=== PATIENT | female | born 1955 | race Hispanic/Latino ===

== ENCOUNTER 2017-12-26 08:06 | Inpatient (IN) | payer MEDICARE, OTHER ==
[2017-12-26 08:09] VITALS: BMI 107.6
--- NOTE | 2017-12-26 08:18 | C.PDOC ---
History Of Present Illness 62 y/o F c PMHx schizphrenia BIBEMS with altered mental status. Patient was found on floor by family member this morning at 6:30am (2 hours ago). According to EMS who knows patient well, she is normally verbal and walking at baseline. This morning, she was minimally responsive and not spontaneously moving. She was leaning over a table according to family member at 6:30pm last night, which was the last time she was seen normal. While changing patient into hospital gown , she is speaking nonsensically and moving all extremities. Full HPI/ROS unobtainable due to mental status. Time Seen by Provider: 12/26/17 08:07 Past Medical History Vital Signs: Last Vital Signs Temp 98.8 F 12/26/17 08:34 Pulse 95 H 12/26/17 10:41 Resp 15 12/26/17 10:41 BP 140/68 12/26/17 10:41 Pulse Ox 99 12/26/17 10:41 - Medical History PMH: Diabetes, Paranoia, Schizophrenia Denies: Hepatitis, HIV, HTN, Chronic Kidney Disease, Seizures, Sexually Transmitted Disease - [facility] Procedures PSYCHIAT DRUG THERAP NEC (04/13/03) Family History: States: Unknown Family Hx - Social History Hx Tobacco Use: No Hx Alcohol Use: No Hx Substance Use: No - Immunization History Hx Tetanus Toxoid Vaccination: No Hx Influenza Vaccination: No Hx Pneumococcal Vaccination: No Review Of Systems Review Of Systems: ROS cannot be obtained secondary to pt's inabilty to answer questions. Physical Exam - Physical Exam Additional Physical Exam Comments: Gen: No acute distress Head: AT Eyes: PERRL ENT: MMM Neck: No midline tenderness. FROM Chest: No deformity CV: Radial pulses 2+. Regular rate Lungs: CTA b/l Abd: Soft, NT Back: No midline tenderness Extremities: Pelvis stable. FROM x 4. No tenderness or edema x 4 Skin: No ecchymosis or laceration Neuro: Awake, speaking nonsensically, moves all extremities ED Course And Treatment - Laboratory Results Result Diagrams: 12/26/17 08:43 12/26/17 08:43 Medical Decision Making Medical Decision Makin62 y/o F c PMHx schizophrenia p/w altered mental status without focal neurological deficit and no physical exam evidence of trauma. Differential at this time includes still trauma, medication side effect, CVA, metabolic abnormality, infection. CT Head IMPRESSION: No acute intracranial hemorrhage. PE Mild chronic periventricular white matter ischemic changes. Moderate generalized volume loss. CXR IMPRESSION: No active pulmonary disease. UA shows UTI and chemistry reveals dehydration and acute renal insufficiency. Will treat with antibiotics and IVF. Disposition Discussed With DrRomero: Chely Faulkner Doctor Will See Patient In The: Hospital - Disposition Disposition: HOSPITALIZED Disposition Time: 10:05 Condition: GUARDED - Clinical Impression Clinical Impression: Acute renal insufficiency, Dehydration, UTI (urinary tract infection), Altered mental status
[2017-12-26 08:54] LABS: BASO % 0.1 % (0.0-2.0); HEMOGLOBIN 12.1 g/dL (11.0-16.0); LYMPH # 0.9 K/uL (1.0-4.3); LYMPH % 6.4 % (20.0-40.0); MEAN CELL VOLUME 69.9 fL (81.0-99.0); MEAN CORPUSCULAR HGB CONC 32.8 g/dL (33.0-37.0); MEAN PLATELET VOLUME 9.9 fL (7.2-11.7); MONO # 1.2 K/uL (0.0-0.8); MONO % 8.3 % (0.0-10.0); NEUT # 12.4 K/uL (1.8-7.0); NEUT % 85.2 % (50.0-75.0); PLATELET COUNT 301 K/uL (130-400); RBC 5.27 Mil/uL (3.80-5.20); RED CELL DISTRIBUTION WIDTH 15.6 % (11.5-14.5); WHITE BLOOD COUNT 14.5 K/uL (4.8-10.8)
[2017-12-26 08:58] LABS: INR 1.2; PROTHROMBIN TIME 12.7 SECONDS (9.7-12.2)
--- NOTE | 2017-12-26 09:12 | CT ---
PROCEDURE: CT HEAD WITHOUT CONTRAST. HISTORY: Altered mental status COMPARISON: None available. TECHNIQUE: Axial computed tomography images were obtained through the head/brain without intravenous contrast. Radiation dose: Total exam DLP = 903.28 mGy-cm. This CT exam was performed using one or more of the following dose reduction techniques: Automated exposure control, adjustment of the mA and/or kV according to patient size, and/or use of iterative reconstruction technique. FINDINGS: HEMORRHAGE: No acute parenchymal, subarachnoid nor extra-axial hemorrhage. BRAIN: Minor chronic periventricular white matter ischemic changes seen extending peripherally into the deep white matter of both cerebral hemispheres. No evidence of large acute infarct. No obvious parenchymal nor extra-axial mass or collection seen on this noncontrast study. Moderate generalized volume loss. VENTRICLES: No obstructive hydrocephalus. CALVARIUM: There are no acute calvarial fractures. . PARANASAL SINUSES: Unremarkable as visualized. No significant inflammatory changes. MASTOID AIR CELLS: Unremarkable as visualized. No inflammatory changes. OTHER FINDINGS: None. IMPRESSION: No acute intracranial hemorrhage. PE Mild chronic periventricular white matter ischemic changes. Moderate generalized volume loss.
[2017-12-26 09:30] LABS: ACETAMINOPHEN < 10.0 ug/mL (10.0-30.0); SALICYLATE < 1.0 mg/dL 1
[2017-12-26 09:32] LABS: BANDS 2 % (0-2); BASOPHIL 1 % (0-2); MONOCYTE 8 % (0-10); TOTAL CELLS COUNTED 100
[2017-12-26 09:33] LABS: ANISOCYTOSIS SLIGHT; LYMPHOCYTE 8 % (20-40); NEUTROPHIL 81 % (50-75); PLATELET ESTIMATE NORMAL (NORMAL)
[2017-12-26 09:36] LABS: POIKILOCYTOSIS SLIGHT
[2017-12-26 09:36] LABS: SQUAMOUS EPITHIAL 2 /hpf (0-5); URINE AMORPHOUS SEDIMENT RARE /ul (<OCC); URINE BACTERIA MANY (<OCC); URINE BILIRUBIN NEGATIVE (NEGATIVE); URINE BLOOD 1+ (NEGATIVE); URINE CLARITY Hazy (Clear); URINE COLOR Amber (YELLOW); URINE GLUCOSE (UA) 1+ mg/dL (Normal); URINE LEUKOCYTE ESTERASE NEG Leu/uL (Negative); URINE PROTEIN 2+ mg/dL (NEGATIVE)
[2017-12-26 09:37] LABS: BURR CELLS SLIGHT; HYPOCHROMIC SLIGHT
[2017-12-26] MEDS ORDERED: Cefepime IV 1 gm in Dextrose 1 GM/50 ML BAG IVPB STA (09:39)
[2017-12-26 09:40] LABS: BARBITURATES, UR NEGATIVE (NEGATIVE); BENZODIAZEPINES, UR NEGATIVE (NEGATIVE); OPIATES, UR NEGATIVE (NEGATIVE); PHENCYCLIDINE, UR NEGATIVE (NEGATIVE)
[2017-12-26 09:50] LABS: ALB/GLOB RATIO 1.3 (1.0-2.1); ALBUMIN 4.4 g/dL (3.5-5.0); ALT/SGPT 45 U/L (9-52); AST/SGOT 54 U/L (14-36); BLOOD UREA NITROGEN 30 mg/dL (7-17); CALCIUM 9.7 mg/dl (8.6-10.4); GFR AFRICAN-AMERICAN 42; GFR NON-AFRICAN AMERICAN 35
--- NOTE | 2017-12-26 10:04 | RAD ---
HISTORY: ams COMPARISON: 07/25/2016. FINDINGS: LUNGS: The lungs are well inflated and clear. PLEURA: No significant pleural effusion identified, no pneumothorax apparent. CARDIOVASCULAR: Normal. OSSEOUS STRUCTURES: No significant abnormalities. VISUALIZED UPPER ABDOMEN: Normal. OTHER FINDINGS: None. IMPRESSION: No active pulmonary disease.
[2017-12-26] MEDS ORDERED: Sodium Chloride 0.9% 1,000 ML IV STA (10:11)
[2017-12-26] MEDS ORDERED: Sodium Chloride 0.9% 1,000 ML ONE (10:26)
[2017-12-26] MEDS ORDERED: Sodium Chloride 0.45% 1,000 ML IV SCH (13:45)
--- NOTE | 2017-12-26 22:19 | CP.PCM.HP ---
History of Present Illness - History of Present Illness History of Present Illness: Chief complaints: Brought in by ambulance because of the altered mental status History present illness: 62-year-old female with a history of schizophrenia, hypertension was found on the floor by family member, and called ambulance. When the EMS arrived the patient was minimally responsive, and she was not moving so patient was brought to the emergency room. According to the family members the patient was communicating the night before. Patient was in [facility], as an inpatient recently, but was released, now at home. According to the patient's brother who is main restaurant crew person, patient was getting more and more combative verbalizing. But after discharge from the place patient become more weak, not eating well. And today patient is not verbalizing, and not eating. And she become more lethargic. In the emergency room patient was sometimes able to come communicate, but unable to comprehend the conversation. Patient is so confused. Even in normal time in my office, agent is always talking by herself. She feels like there is at least 2-3 people in herself, and she complicated with each other all the time. But she can able to talk to us at times. Now patient is more lethargic, unable to arouse at this time, but otherwise comfortable Past medical history, schizophrenia, hypertension. Allergy no known drug allergy Personal history nonsmoker nonalcoholic Social history noted Patient is living with family members him a and also the brother is the main restaurant crew person. Review of system: Patient is somewhat lethargic, arousable easily. Communicating. Verbalizing at times. No distress. She is not complaining of any pain. On examination: Vital signs reviewed Chest good air entry, minimal mucosal dryness noted Regular heart sound Abdomen soft Nontender. Next images no pedal edema HEAD DOFFER alert awake oriented Patient's labs reviewed Elevated sodium level, calcium level noted. Suspected dehydration Assessment and recommendation: 62-year-old female with a history of schizophrenia, hypertension admitted to the hospital with the increasing pathology. Metabolic encephalopathy Likely dehydration. Prerenal Also possible urinary tract infection. On antibiotic. IV fluid. Psychotic evaluation. Closely monitor. Will follow the patient Present on Admission - Present on Admission Any Indicators Present on Admission: No History of DVT/PE: No History of Uncontrolled Diabetes: No Urinary Catheter: No Decubitus Ulcer Present: No Past Patient History - Infectious Disease Hx of Infectious Diseases: None - Past Medical History & Family History Past Medical History?: Yes - Past Social History Smoking Status: Never Smoked - CARDIAC Hx Hypertension: Yes - PULMONARY Hx Tuberculosis: No - NEUROLOGICAL Hx Seizures: No - HEENT Hx HEENT Problems: No - RENAL Hx Chronic Kidney Disease: No - ENDOCRINE/METABOLIC Hx Endocrine Disorders: No - HEMATOLOGICAL/ONCOLOGICAL Hx Human Immunodeficiency Virus (HIV): No - INTEGUMENTARY Hx Dermatological Problems: No - MUSCULOSKELETAL/RHEUMATOLOGICAL Hx Falls: Yes - GASTROINTESTINAL Hx Gastrointestinal Disorders: No - GENITOURINARY/GYNECOLOGICAL Hx Sexually Transmitted Disorders: No - PSYCHIATRIC Hx Paranoia: Yes Hx Schizophrenia: Yes Hx Substance Use: No - SURGICAL HISTORY Hx Surgeries: No - ANESTHESIA Hx Anesthesia: No Hx Anesthesia Reactions: No Hx Malignant Hyperthermia: No Has any member of the family had a problem w/ anesthesia?: No Meds Allergies/Adverse Reactions: Allergies Allergy/AdvReac Type Severity Reaction Status Date / Time No Known Allergies Allergy Verified 12/26/17 08:49 Results - Vital Signs Recent Vital Signs: Last Vital Signs Temp 98.6 F 12/26/17 15:34 Pulse 86 12/26/17 18:00 Resp 20 12/26/17 15:34 BP 106/65 12/26/17 15:34 Pulse Ox 97 12/26/17 15:34 - Labs Result Diagrams: 12/27/17 06:39 12/27/17 06:39 Labs: Laboratory Results - last 24 hr 12/26/17 12/26/17 12/26/17 08:10 08:43 08:43 WBC 14.5 H RBC 5.27 H Hgb 12.1 Hct 36.9 MCV 69.9 L MCH 23.0 L MCHC 32.8 L RDW 15.6 H Plt Count 301 MPV 9.9 Neut % (Auto) 85.2 H Lymph % (Auto) 6.4 L Walton % (Auto) 8.3 Eos % (Auto) 0.0 Baso % (Auto) 0.1 Neut # (Auto) 12.4 H Lymph # (Auto) 0.9 L Walton # (Auto) 1.2 H Eos # (Auto) 0.0 Baso # (Auto) 0.0 Neutrophils % (Manual) 81 H Band Neutrophils % 2 Lymphocytes % (Manual) 8 L Monocytes % (Manual) 8 Basophils % (Manual) 1 Platelet Estimate Normal Hypochromasia (manual) Slight Poikilocytosis (manual Slight Anisocytosis (manual) Slight Osiris Cells Slight PT INR APTT Sodium 152 H Potassium 4.1 Chloride 108 H Carbon Dioxide 21 L Anion Gap 26 H BUN 30 H Creatinine 1.5 H Est GFR ( Amer) 42 Est GFR (Non-Af Amer) 35 POC Glucose (mg/dL) 167 H Random Glucose 152 H Calcium 9.7 Total Bilirubin 0.6 AST 54 H ALT 45 Alkaline Phosphatase 73 Ammonia Total Creatine Kinase 224 H CK-MB (Mass) 2.60 Troponin I 0.0880 Total Protein 7.7 Albumin 4.4 Globulin 3.3 Albumin/Globulin Ratio 1.3 Urine Color Urine Clarity Urine pH Ur Specific Decker Urine Protein Urine Glucose (UA) Urine Ketones Urine Blood Urine Nitrate Urine Bilirubin Urine Urobilinogen Ur Leukocyte Esterase Urine WBC (Auto) Urine RBC (Auto) Ur Squamous Epith Cells Amorphous Sediment Urine Bacteria Hyaline Casts Salicylates Urine Opiates Screen Urine Methadone Screen Acetaminophen Ur Barbiturates Screen Ur Phencyclidine Scrn Ur Amphetamines Screen U Benzodiazepines Scrn U Oth Cocaine Metabols U Cannabinoids Screen Alcohol, Quantitative < 10 Blood Type Antibody Screen 12/26/17 12/26/17 12/26/17 08:43 08:43 08:43 WBC RBC Hgb Hct MCV MCH MCHC RDW Plt Count MPV Neut % (Auto) Lymph % (Auto) Walton % (Auto) Eos % (Auto) Baso % (Auto) Neut # (Auto) Lymph # (Auto) Walton # (Auto) Eos # (Auto) Baso # (Auto) Neutrophils % (Manual) Band Neutrophils % Lymphocytes % (Manual) Monocytes % (Manual) Basophils % (Manual) Platelet Estimate Hypochromasia (manual) Poikilocytosis (manual Anisocytosis (manual) Success Cells PT 12.7 H INR 1.2 APTT 36 H Sodium Potassium Chloride Carbon Dioxide Anion Gap BUN Creatinine Est GFR ( Amer) Est GFR (Non-Af Amer) POC Glucose (mg/dL) Random Glucose Calcium Total Bilirubin AST ALT Alkaline Phosphatase Ammonia 17 Total Creatine Kinase CK-MB (Mass) Troponin I Total Protein Albumin Globulin Albumin/Globulin Ratio Urine Color Urine Clarity Urine pH Ur Specific Decker Urine Protein Urine Glucose (UA) Urine Ketones Urine Blood Urine Nitrate Urine Bilirubin Urine Urobilinogen Ur Leukocyte Esterase Urine WBC (Auto) Urine RBC (Auto) Ur Squamous Epith Cells Amorphous Sediment Urine Bacteria Hyaline Casts Salicylates < 1.0 Urine Opiates Screen Urine Methadone Screen Acetaminophen < 10.0 L Ur Barbiturates Screen Ur Phencyclidine Scrn Ur Amphetamines Screen U Benzodiazepines Scrn U Oth Cocaine Metabols U Cannabinoids Screen Alcohol, Quantitative Blood Type Antibody Screen 12/26/17 12/26/17 12/26/17 08:43 09:15 09:15 WBC RBC Hgb Hct MCV MCH MCHC RDW Plt Count MPV Neut % (Auto) Lymph % (Auto) Walton % (Auto) Eos % (Auto) Baso % (Auto) Neut # (Auto) Lymph # (Auto) Walton # (Auto) Eos # (Auto) Baso # (Auto) Neutrophils % (Manual) Band Neutrophils % Lymphocytes % (Manual) Monocytes % (Manual) Basophils % (Manual) Platelet Estimate Hypochromasia (manual) Poikilocytosis (manual Anisocytosis (manual) Osiris Cells PT INR APTT Sodium Potassium Chloride Carbon Dioxide Anion Gap BUN Creatinine Est GFR ( Amer) Est GFR (Non-Af Amer) POC Glucose (mg/dL) Random Glucose Calcium Total Bilirubin AST ALT Alkaline Phosphatase Ammonia Total Creatine Kinase CK-MB (Mass) Troponin I Total Protein Albumin Globulin Albumin/Globulin Ratio Urine Color Carmen Urine Clarity Hazy Urine pH 5.0 Ur Specific Decker 1.023 Urine Protein 2+ H Urine Glucose (UA) 1+ Urine Ketones Trace Urine Blood 1+ H Urine Nitrate Positive H Urine Bilirubin Negative Urine Urobilinogen 2.0 H Ur Leukocyte Esterase Neg Urine WBC (Auto) 6 H Urine RBC (Auto) 11 H Ur Squamous Epith Cells 2 Amorphous Sediment Rare H Urine Bacteria Many H Hyaline Casts 11-20 H Salicylates Urine Opiates Screen Negative Urine Methadone Screen Negative Acetaminophen Ur Barbiturates Screen Negative Ur Phencyclidine Scrn Negative Ur Amphetamines Screen Negative U Benzodiazepines Scrn Negative U Oth Cocaine Metabols Negative U Cannabinoids Screen Negative Alcohol, Quantitative Blood Type O NEGATIVE Antibody Screen Negative
[2017-12-27 06:46] LABS: BASO % 0.2 % (0.0-2.0); EOS % 0.5 % (0.0-4.0); HEMOGLOBIN 10.2 g/dL (11.0-16.0); LYMPH # 3.3 K/uL (1.0-4.3); LYMPH % 35.6 % (20.0-40.0); MEAN CORPUSCULAR HEMOGLOBIN 23.1 pg (27.0-31.0); MEAN CORPUSCULAR HGB CONC 33.5 g/dL (33.0-37.0); MEAN PLATELET VOLUME 9.2 fL (7.2-11.7); MONO # 0.9 K/uL (0.0-0.8); MONO % 9.9 % (0.0-10.0); NEUT % 53.8 % (50.0-75.0); RBC 4.39 Mil/uL (3.80-5.20); RED CELL DISTRIBUTION WIDTH 15.8 % (11.5-14.5); WHITE BLOOD COUNT 9.2 K/uL (4.8-10.8)
[2017-12-27 07:08] LABS: ALB/GLOB RATIO 1.2 (1.0-2.1); ALT/SGPT 46 U/L (9-52); AST/SGOT 72 U/L (14-36); BLOOD UREA NITROGEN 19 mg/dL (7-17); CALCIUM 8.8 mg/dl (8.6-10.4); GFR AFRICAN-AMERICAN > 60; GFR NON-AFRICAN AMERICAN > 60
[2017-12-27] MEDS ORDERED: Sodium Chloride 0.45% 1,000 ML IV SCH (08:00)
[2017-12-27] MEDS: Divalproex 250 mg DR Tab PO SCH ×4 (10:39→18:03)
[2017-12-27] MEDS ORDERED: SODIUM CHLORIDE 0.45% IV SCH (16:45)
[2017-12-27] MEDS ORDERED: POTASSIUM CHLORIDE IV SCH (16:45)
[2017-12-27] MEDS: Potassium Chl 40 mEq in D5-1/2 1,000 ML IV SCH (18:30)
--- NOTE | 2017-12-27 18:53 | CP.PCM.PN ---
Subjective - Date & Time of Evaluation Date of Evaluation: 12/27/17 Time of Evaluation: 18:53 - Subjective Subjective: Patient is still feeling somewhat confused. Patient is not eating well. She is getting the IV fluid at this time. I spoke to the patient's brother in detail about the patient's condition. Patient's brother was her to be in a facility at in [place], for mental condition. Recently she was placed on the [facility] involuntarily, but was released recently. She is not eating well, her condition is slowly worsening On examination: Vital signs stable. Chest good air entry noted. Regular heart sound. Nontender abdomen FORM RAISER alert awake, she is following simple commands. And she is also answering simple questions Labs reviewed Improvement in the renal functions noted Assessment and recommendation: 62-year-old female with a history of long-standing schizophrenia, unable to control with the medications. Now admitted with acute renal failure, dehydration, altered mental status. Metabolic encephalopathy. Improvement noted. Patient will need psychotic follow-up and evaluation. Patient's brother wants her to be transferred if possible to [place]. Will continue the current IV fluid and will treatment out of bed to chair and will follow the patient Objective - Vital Signs/Intake and Output Vital Signs (last 24 hours): Temp Pulse Resp BP Pulse Ox 98.3 F 83 20 107/83 94 L 12/27/17 15:24 12/27/17 15:24 12/27/17 15:24 12/27/17 15:24 12/27/17 15:24 Intake and Output: 12/27/17 12/27/17 06:59 18:59 Intake Total 525 Balance 525 - Medications Medications: Current Medications Amlodipine Besylate (Norvasc) 10 mg PO DAILY [facility] Last Admin: 12/27/17 10:30 Dose: 10 mg Benztropine Mesylate (Cogentin) 1 mg PO BID [facility] Last Admin: 12/27/17 18:01 Dose: 1 mg Divalproex Sodium (Depakote Dr) 250 mg PO TID [facility] Last Admin: 12/27/17 18:03 Dose: 250 mg Haloperidol (Haldol) 10 mg PO TID [facility] Last Admin: 12/27/17 18:02 Dose: 10 mg Ceftriaxone Sodium 1 gm/ (Sodium Chloride) 100 mls @ 200 mls/hr IVPB DAILY [facility] PRN Reason: Protocol Last Admin: 12/27/17 10:29 Dose: 200 mls/hr Potassium Chloride/Dextrose/Sod Cl (Potassium Chl 40 Meq In D5-1/2ns) 1,000 mls @ 50 mls/hr IV .Q20H [facility] Last Admin: 12/27/17 18:30 Dose: 50 mls/hr Lorazepam (Ativan) 0.5 mg PO BID [facility] Last Admin: 12/27/17 18:00 Dose: 0.5 mg Pneumococcal Polyvalent Vaccine (Pneumovax 23 Vaccine) 0.5 ml IM .ONCE ONE Stop: 12/28/17 10:01 - Labs Labs: 12/27/17 06:39 12/27/17 06:39 PT 12.7 SECONDS (9.7-12.2) H 12/26/17 08:43 INR 1.2 12/26/17 08:43 APTT 36 SECONDS (21-34) H 12/26/17 08:43
[2017-12-28 06:56] LABS: BASO % 0.3 % (0.0-2.0); EOS # 0.1 K/uL (0.0-0.7); LYMPH # 3.4 K/uL (1.0-4.3); MONO # 0.8 K/uL (0.0-0.8); MONO % 10.3 % (0.0-10.0); NRBC % 0.1 % (0.0-2.0)
[2017-12-28 07:06] LABS: EOS % 1.7 % (0.0-4.0); HEMOGLOBIN 10.6 g/dL (11.0-16.0); LYMPH % 43.7 % (20.0-40.0); MEAN CORPUSCULAR HGB CONC 33.3 g/dL (33.0-37.0); MEAN PLATELET VOLUME 9.4 fL (7.2-11.7); NEUT # 3.4 K/uL (1.8-7.0); RBC 4.62 Mil/uL (3.80-5.20); RED CELL DISTRIBUTION WIDTH 15.5 % (11.5-14.5); WHITE BLOOD COUNT 7.7 K/uL (4.8-10.8)
[2017-12-28 07:13] LABS: ALB/GLOB RATIO 1.1 (1.0-2.1); ALBUMIN 2.9 g/dL (3.5-5.0); ALT/SGPT 58 U/L (9-52); AST/SGOT 86 U/L (14-36); BLOOD UREA NITROGEN 12 mg/dL (7-17); CALCIUM 8.4 mg/dl (8.6-10.4); GFR AFRICAN-AMERICAN > 60; GFR NON-AFRICAN AMERICAN > 60
--- NOTE | 2017-12-28 07:42 | CP.PCM.PN ---
Subjective - Date & Time of Evaluation Date of Evaluation: 12/28/17 Time of Evaluation: 07:42 - Subjective Subjective: Patient is still feeling somewhat confused. Patient is not eating well. She is getting the IV fluid at this time. I spoke to the patient's brother in detail about the patient's condition. Patient's brother was her to be in a facility at in [place], for mental condition. Recently she was placed on the [facility] involuntarily, but was released recently. She is not eating well, her condition is slowly worsening On examination: Vital signs stable. Chest good air entry noted. Regular heart sound. Nontender abdomen [employer] alert awake, she is following simple commands. And she is also answering simple questions Labs reviewed Improvement in the renal functions noted Assessment and recommendation: 62-year-old female with a history of long-standing schizophrenia, unable to control with the medications. Now admitted with acute renal failure, dehydration, altered mental status. Metabolic encephalopathy. Improvement noted. Patient will need psychotic follow-up and evaluation. Patient's brother wants her to be transferred if possible to [place]. Will continue the current IV fluid and will treatment out of bed to chair and will follow the patient Objective - Vital Signs/Intake and Output Vital Signs (last 24 hours): Temp Pulse Resp BP Pulse Ox 97.3 F L 68 20 116/60 95 12/28/17 00:00 12/28/17 00:00 12/28/17 00:00 12/28/17 00:00 12/28/17 00:00 Intake and Output: 12/28/17 12/28/17 06:59 18:59 Intake Total 1000 Balance 1000 - Medications Medications: Current Medications Amlodipine Besylate (Norvasc) 10 mg PO DAILY [facility] Last Admin: 12/27/17 10:30 Dose: 10 mg Benztropine Mesylate (Cogentin) 1 mg PO BID [facility] Last Admin: 12/27/17 18:01 Dose: 1 mg Divalproex Sodium (Depakote Dr) 250 mg PO TID [facility] Last Admin: 12/27/17 18:03 Dose: 250 mg Haloperidol (Haldol) 10 mg PO TID [facility] Last Admin: 12/27/17 18:02 Dose: 10 mg Ceftriaxone Sodium 1 gm/ (Sodium Chloride) 100 mls @ 200 mls/hr IVPB DAILY [facility] PRN Reason: Protocol Last Admin: 12/27/17 10:29 Dose: 200 mls/hr Potassium Chloride/Dextrose/Sod Cl (Potassium Chl 40 Meq In D5-1/2ns) 1,000 mls @ 50 mls/hr IV .Q20H [facility] Last Admin: 12/27/17 18:30 Dose: 50 mls/hr Lorazepam (Ativan) 0.5 mg PO BID [facility] Last Admin: 12/27/17 18:00 Dose: 0.5 mg Pneumococcal Polyvalent Vaccine (Pneumovax 23 Vaccine) 0.5 ml IM .ONCE ONE Stop: 12/28/17 10:01 - Labs Labs: 12/28/17 06:50 12/28/17 06:50 PT 12.7 SECONDS (9.7-12.2) H 12/26/17 08:43 INR 1.2 12/26/17 08:43 APTT 36 SECONDS (21-34) H 12/26/17 08:43
[2017-12-28] MEDS: Divalproex 250 mg DR Tab PO SCH ×3 (09:38→17:46)
[2017-12-28] MEDS ORDERED: Pneumococcal 23-Valent Vaccine IM ONE (10:00)
[2017-12-28] MEDS: Potassium Chl 40 mEq in D5-1/2 1,000 ML IV SCH (14:22)
--- NOTE | 2017-12-28 17:10 | PCM.PSYCH ---
Initial Psychiatric Evaluation - Initial Psychiatric Evaluation Type of Admission: Voluntary Legal Status: Capacity Chief Complaint (in patient's own words): Maria M estrella.' History of Present Illness and Precipitating Events: This is a 62 y/o CF as medical history of Schizophrenia was BIB EMS with altered mental status. Patient was found on floor by family member. Today patient was consulted. Patient has a long history of schizophrenia. She has been hospitalized multiple times. She will last discharge from [facility] last year. Patient remained disorganized and internally preoccupied throughout the interview. She remained paranoid, and delusional throughout the interview. She was alert and awake but remained disoriented to time, place and person. She was talking to self and was making a full conversation. As per the staff, she remained irritable and agitated and continue to have one-sided conversation whole night. Since she was attacking the staff members and pulling IV lines out , soft gloves were put on her both hands. PMH: HTN Current Medications: Active Medications Generic Name Dose Route Start Last Admin Trade Name Karen PRN Reason Stop Dose Admin Amlodipine Besylate 10 mg 12/27/17 10:12/28/17 09:38 Norvasc PO 10 mg DAILY [facility] Administration Benztropine Mesylate 1 mg 12/27/17 10:00 12/28/17 09:37 Cogentin PO 1 mg BID [facility] Administration Divalproex Sodium 250 mg 12/27/17 10:00 12/28/17 14:[address] PO 250 mg TID [facility] Administration Haloperidol 10 mg 12/27/17 10:00 12/28/17 14:23 Haldol PO 10 mg TID [facility] Administration Ceftriaxone Sodium 1 gm/ 100 mls @ 200 mls/hr 12/27/17 10:00 12/28/17 10:06 Sodium Chloride IVPB 200 mls/hr DAILY [facility] Administration Protocol Potassium Chloride/Dextrose/Sod Cl 1,000 mls @ 50 mls/hr 12/27/17 18:00 12/28 14:22 Potassium Chl 40 Meq In D5-1/2ns IV Not Given .Q20H [facility]IA Lorazepam 0.5 mg 12/27/17 10:00 12/28/17 09:38 Ativan PO 0.5 mg BID [facility] Administration Past Psychiatric History - Past Psychiatric History Previous Treatment History: Inpatient Pertinent Medical Hx (Current Medical&Sleep Prob, Allergies): Allergies Allergy/AdvReac Type Severity Reaction Status Date / Time No Known Allergies Allergy Verified 12/26/17 08:49 Benztropine [Cogentin] 1 mg PO BID 12/26/17 Divalproex [Depakote DR] 250 mg PO TID 12/26/17 Fenofibric Acid (Choline) [Trilipix] 135 mg PO DAILY 12/26/17 Haloperidol [Haldol] 10 mg PO TID 12/26/17 LORazepam [Ativan] 0.5 mg PO BID 12/26/17 amLODIPine [Norvasc] 10 mg PO DAILY 12/26/17 Review of Systems - Review of Systems All systems: reviewed and no additional remarkable complaints except - Psychiatric Psychiatric: Anxiety, Auditory Hallucinations, Irritability, Paranoia Mental Status Examination - Personal Presentation Personal Presentation: Looks stated age - Affect Affect: Broad - Motor Activity Motor Activity: Psychomotor Agitation - Reliability in Providing Information Reliability in Providing Information: Poor, due to alteration in thoughts, Poor , due to altered mood - Speech Speech: Disorganized - Mood Mood: Anxious - Formal Thought Process Formal Thought Process: Hallucinations, Delusions, Paranoia, Loosening of associations - Hallucinations/Delusions Hallucinations: Visual, Auditory Delusions: Persecution - Obsessions/Compulsions Obsessions: No Compulsions: No - Cognitive Functions Sensorium: Alert Attention/Concentration: Easily distracted Estimate of Intelligence: Below average Judgement: Imparied, as evidence by: Poor judgement, Imparied, as evidence by: Lack of insight into illness - Risk Risk: Diminished functioning - Limitations Limitations: Living alone DSM 5 DX - DSM 5 DSM 5 Diagnosis: Schizoaffective disorder bipolar type Rule out delirium due to medical condition - Recommended/Plan of Treatment Treatment Recommendations and Plan of Treatment: Schizoaffective disorder bipolar type Rule out delirium due to medical condition Psychoeducation Supportive therapy, group therapy, individual therapy Haldol 10 mg by mouth TID Cogentin 1 mg by mouth twice a day DC Depakote 500 mg by mouth twice a day Gabapentin 300 mg po TID Klonopin 0.5 mg by mouth 3 times a day when necessary
[2017-12-29] MEDS: Potassium Chl 40 mEq in D5-1/2 1,000 ML IV SCH ×2 (02:10→10:39)
[2017-12-29 06:38] LABS: BASO % 0.4 % (0.0-2.0); EOS # 0.2 K/uL (0.0-0.7); EOS % 2.8 % (0.0-4.0); HEMOGLOBIN 11.1 g/dL (11.0-16.0); LYMPH # 3.2 K/uL (1.0-4.3); LYMPH % 44.6 % (20.0-40.0); MEAN CELL VOLUME 69.8 fL (81.0-99.0); MEAN CORPUSCULAR HEMOGLOBIN 23.1 pg (27.0-31.0); MEAN PLATELET VOLUME 8.9 fL (7.2-11.7); MONO # 0.7 K/uL (0.0-0.8); MONO % 9.1 % (0.0-10.0); NEUT # 3.1 K/uL (1.8-7.0); NEUT % 43.1 % (50.0-75.0); NRBC % 0.1 % (0.0-2.0); RBC 4.79 Mil/uL (3.80-5.20); RED CELL DISTRIBUTION WIDTH 15.7 % (11.5-14.5); WHITE BLOOD COUNT 7.1 K/uL (4.8-10.8)
[2017-12-29 06:56] LABS: ALB/GLOB RATIO 1.2 (1.0-2.1); ALBUMIN 3.2 g/dL (3.5-5.0); ALT/SGPT 54 U/L (9-52); AST/SGOT 55 U/L (14-36); BLOOD UREA NITROGEN 12 mg/dL (7-17); CALCIUM 8.6 mg/dl (8.6-10.4); GFR AFRICAN-AMERICAN > 60; GFR NON-AFRICAN AMERICAN > 60
--- NOTE | 2017-12-29 16:49 | PCM.PYCHPN ---
Psychiatric Progress Note - Psychiatric Progress Note Patient seen today, length of contact: 15 min Patient Chief Complaint: Maria M is great.' Problems Identified/Issues Discussed: Patient seen and evaluated, chart reviewed and discussed with the nurse. Patient remained disorganized and internally preoccupied. Patient still appears paranoid and delusional. She remained delirious and remained disoriented to time place and person. She is still talking to herself and making a nonstop one-sided conversation She remained irritable and agitated. However she is taking medications and denies any side effects. Medication Change: Yes (Increase Klonopin) Medical Record Reviewed: Yes Mental Status Examination - Cognitive Function Memory: Impaired Attention: Poor Concentration: Poor Association: Loose Fund of Knowledge: Poor - Mood Mood: Anxious - Affect Affect: Broad - Speech Speech: Loud, Pressured - Formal Thought Process Formal Thought Process: Hallucinations, Delusions, Paranoia, Loosening of associations - Suicidal Ideation Suicidal Ideation: No - Homicidal Ideation Homicidal Ideation: No Goal/Treatment Plan - Goal/Treatment Plan Need for Continued Stay: Severe depression anxiety, Severe functional impairment Progress Toward Problem(s) and Goals/Treatment Plan: Schizoaffective disorder bipolar type Rule out delirium due to medical condition Psychoeducation Supportive therapy, group therapy, individual therapy Haldol 10 mg by mouth TID Cogentin 1 mg by mouth twice a day DC Depakote 500 mg by mouth twice a day Gabapentin 300 mg po TID Klonopin 1 mg by mouth 3 times a day when necessary
[2017-12-30] MEDS: Potassium Chl 40 mEq in D5-1/2 1,000 ML IV SCH ×2 (02:43→06:32)
--- NOTE | 2017-12-30 22:27 | CP.PCM.PN ---
Subjective - Date & Time of Evaluation Date of Evaluation: 12/29/17 Time of Evaluation: 22:26 - Subjective Subjective: Patient is currently feeling slightly sleepy. Awake and responding when you when we called her by name. She is eating and drinking well. No chest pain or shortness of breath Vital signs stable Clinically otherwise stable. Assessment and recommendation: Patient with urinary tract infection, E. coli. On antibiotic. Admitted with altered mental status. Improving. Patient also has a significant schizophrenia and psychotic condition. Appreciate psychotic evaluation. Objective - Vital Signs/Intake and Output Vital Signs (last 24 hours): Temp Pulse Resp BP Pulse Ox 98.5 F 80 20 125/75 92 L 12/30/17 15:59 12/30/17 15:59 12/30/17 15:59 12/30/17 15:59 12/30/17 15:59 Intake and Output: 12/30/17 12/31/17 18:59 06:59 Intake Total 400 Balance 400 - Medications Medications: Current Medications Amlodipine Besylate (Norvasc) 10 mg PO DAILY [facility] Last Admin: 12/30/17 09:26 Dose: 10 mg Benztropine Mesylate (Cogentin) 1 mg PO BID [facility] Last Admin: 12/30/17 17:40 Dose: Not Given Clonazepam (Klonopin) 1 mg PO TID PRN PRN Reason: Anxiety Last Admin: 12/30/17 08:37 Dose: 1 mg Gabapentin (Neurontin) 300 mg PO TID [facility] Last Admin: 12/30/17 17:41 Dose: Not Given Haloperidol (Haldol) 10 mg PO TID [facility] Last Admin: 12/30/17 17:40 Dose: Not Given Ceftriaxone Sodium 1 gm/ (Sodium Chloride) 100 mls @ 200 mls/hr IVPB DAILY [facility] PRN Reason: Protocol Last Admin: 12/30/17 09:32 Dose: 200 mls/hr Lorazepam (Ativan) 1 mg PO Q6 PRN PRN Reason: Agitation - Labs Labs: 12/29/17 06:34 12/29/17 06:34 PT 12.7 SECONDS (9.7-12.2) H 12/26/17 08:43 INR 1.2 12/26/17 08:43 APTT 36 SECONDS (21-34) H 12/26/17 08:43
--- NOTE | 2017-12-30 22:28 | CP.PCM.PN ---
Subjective - Date & Time of Evaluation Date of Evaluation: 12/30/17 Time of Evaluation: 22:27 - Subjective Subjective: Patient is today more drowsy. But arousable with deep stimuli. Did not eat well. We will hold off all the antipsychotic medication, and anti-depression at this time. We will closely monitor. We will resume it when the patient is more awake and responding. We will continue the IV antibiotic. Patient with a E. coli urinary tract Objective - Vital Signs/Intake and Output Vital Signs (last 24 hours): Temp Pulse Resp BP Pulse Ox 98.5 F 80 20 125/75 92 L 12/30/17 15:59 12/30/17 15:59 12/30/17 15:59 12/30/17 15:59 12/30/17 15:59 Intake and Output: 12/30/17 12/31/17 18:59 06:59 Intake Total 400 Balance 400 - Medications Medications: Current Medications Amlodipine Besylate (Norvasc) 10 mg PO DAILY [facility] Last Admin: 12/30/17 09:26 Dose: 10 mg Benztropine Mesylate (Cogentin) 1 mg PO BID [facility] Last Admin: 12/30/17 17:40 Dose: Not Given Clonazepam (Klonopin) 1 mg PO TID PRN PRN Reason: Anxiety Last Admin: 12/30/17 08:37 Dose: 1 mg Gabapentin (Neurontin) 300 mg PO TID [facility] Last Admin: 12/30/17 17:41 Dose: Not Given Haloperidol (Haldol) 10 mg PO TID [facility] Last Admin: 12/30/17 17:40 Dose: Not Given Ceftriaxone Sodium 1 gm/ (Sodium Chloride) 100 mls @ 200 mls/hr IVPB DAILY [facility] PRN Reason: Protocol Last Admin: 12/30/17 09:32 Dose: 200 mls/hr Lorazepam (Ativan) 1 mg PO Q6 PRN PRN Reason: Agitation - Labs Labs: 12/29/17 06:34 12/29/17 06:34 PT 12.7 SECONDS (9.7-12.2) H 12/26/17 08:43 INR 1.2 12/26/17 08:43 APTT 36 SECONDS (21-34) H 12/26/17 08:43
[2017-12-31 08:25] LABS: BASO % 0.5 % (0.0-2.0); EOS # 0.2 K/uL (0.0-0.7); EOS % 3.4 % (0.0-4.0); LYMPH # 2.8 K/uL (1.0-4.3); LYMPH % 42.3 % (20.0-40.0); MEAN CELL VOLUME 69.6 fL (81.0-99.0); MEAN PLATELET VOLUME 9.2 fL (7.2-11.7); MONO # 0.7 K/uL (0.0-0.8); MONO % 10.7 % (0.0-10.0); NEUT # 2.9 K/uL (1.8-7.0); NEUT % 43.1 % (50.0-75.0); NRBC % 0.1 % (0.0-2.0); RBC 5.22 Mil/uL (3.80-5.20); RED CELL DISTRIBUTION WIDTH 15.5 % (11.5-14.5); WHITE BLOOD COUNT 6.7 K/uL (4.8-10.8)
[2017-12-31 08:37] LABS: ALB/GLOB RATIO 1.2 (1.0-2.1); ALBUMIN 3.7 g/dL (3.5-5.0); ALT/SGPT 70 U/L (9-52); AST/SGOT 62 U/L (14-36); BLOOD UREA NITROGEN 15 mg/dL (7-17); CALCIUM 9.5 mg/dl (8.6-10.4); GFR AFRICAN-AMERICAN > 60; GFR NON-AFRICAN AMERICAN > 60
--- NOTE | 2017-12-31 13:32 | PCM.PYCHPN ---
Psychiatric Progress Note - Psychiatric Progress Note Patient seen today, length of contact: 15 min Patient Chief Complaint: Maria M is not talking to you.' Problems Identified/Issues Discussed: Patient seen and evaluated, chart reviewed and discussed with the nurse. Patient still appears paranoid and delusional. She remained delirious and remained disoriented to time place and person. Patient remained disorganized and internally preoccupied. She is still talking to herself and making a nonstop one-sided conversation She remained irritable and agitated. However she is taking medications and denies any side effects. Medication Change: Yes (Increase Klonopin) Medical Record Reviewed: Yes Mental Status Examination - Cognitive Function Memory: Impaired Attention: Poor Concentration: Poor Association: Loose Fund of Knowledge: Poor - Mood Mood: Anxious - Affect Affect: Broad - Speech Speech: Loud, Pressured - Formal Thought Process Formal Thought Process: Hallucinations, Delusions, Paranoia, Loosening of associations - Suicidal Ideation Suicidal Ideation: No - Homicidal Ideation Homicidal Ideation: No Goal/Treatment Plan - Goal/Treatment Plan Need for Continued Stay: Severe depression anxiety, Severe functional impairment Progress Toward Problem(s) and Goals/Treatment Plan: Schizoaffective disorder bipolar type Rule out delirium due to medical condition Psychoeducation Supportive therapy, group therapy, individual therapy Haldol 10 mg by mouth TID Cogentin 1 mg by mouth twice a day DC Depakote 500 mg by mouth twice a day Gabapentin 300 mg po TID Klonopin 1 mg by mouth 3 times a day when necessary
--- NOTE | 2017-12-31 21:44 | CP.PCM.PN ---
Subjective - Date & Time of Evaluation Date of Evaluation: 12/31/17 Time of Evaluation: 21:42 - Subjective Subjective: Patient today is more talkative. She answers very simple questions at times. But mostly she is continues to talk irrelevent. She is confused. Patient is confused, and also disoriented. She does not know where she is. But patient is following simple commands, and he able to drink supplements. On examination: Vital signs stable. Chest good air entry bilaterally Regular heart sound Nontender abdomen. No edema Patient is mostly lying on the bed, having mittens in the hands. Labs reviewed Patient urine analysis and culture showing Escherichia coli, sensitive Patient is currently on Rocephin 1 g daily. Will continue the antibiotics for 3 more days. Assessment and recommendation: 62-year-old female with a history of schizophrenia admitted with altered mental status. Underlying metabolic encephalopathy cannot be ruled out. Patient is a even though confused , she follows simple commands. We will continue to monitor. I spoke to the psychiatrist. Psychiatrist thinks patient may have confusion, and also delirium. Medication not tested. Once medically stable, patient may need a psychiatric management. I spoke to the patient's brother in details few days ago, also certified social workers in health care. We will continue to monitor. Will follow-up the patient Objective - Vital Signs/Intake and Output Vital Signs (last 24 hours): Temp Pulse Resp BP Pulse Ox 98.1 F 89 20 111/80 98 12/31/17 15:00 12/31/17 15:00 12/31/17 15:00 12/31/17 15:00 12/31/17 15:00 Intake and Output: 12/31/17 01/01/18 18:59 06:59 Intake Total 50 Balance 50 - Medications Medications: Current Medications Amlodipine Besylate (Norvasc) 10 mg PO DAILY [facility] Last Admin: 12/31/17 09:50 Dose: 10 mg Diphenhydramine HCl (Benadryl) 25 mg IM Q6 PRN PRN Reason: Agitation Diphenhydramine HCl (Benadryl) 25 mg PO TID [facility] Last Admin: 12/31/17 17:44 Dose: 25 mg Gabapentin (Neurontin) 300 mg PO TID [facility] Last Admin: 12/31/17 17:44 Dose: 300 mg Haloperidol (Haldol) 5 mg PO TID [facility] Last Admin: 12/31/17 17:44 Dose: 5 mg Haloperidol Lactate (Haldol) 5 mg IM Q4 PRN PRN Reason: Agitation Ceftriaxone Sodium 1 gm/ (Sodium Chloride) 100 mls @ 200 mls/hr IVPB DAILY [facility] PRN Reason: Protocol Last Admin: 12/31/17 09:37 Dose: 200 mls/hr - Labs Labs: 12/31/17 08:15 12/31/17 08:15 PT 12.7 SECONDS (9.7-12.2) H 12/26/17 08:43 INR 1.2 12/26/17 08:43 APTT 36 SECONDS (21-34) H 12/26/17 08:43
--- NOTE | 2018-01-01 07:39 | CP.PCM.PN ---
Subjective - Date & Time of Evaluation Date of Evaluation: 01/01/18 Time of Evaluation: 07:39 - Subjective Subjective: Patient today is more awake and responding. But is still patient is having excessive gibberish talk. But she responds verbally when I ask about her brother. She answers that he is okay, and She wanted to see him. Patient brother came also today, visited today. She is eating, mostly liquid diet. She denies any chest pain. On examination vital signs stable. Currently on IV antibiotic. Chest good air entry regular also nontender abdomen Assessment and recommendation: 62-year-old female with a history of schizophrenia, bipolar disease also having urinary tract infection. Admitted with altered mental status. Improving. Patient is having severe psychotic symptoms. Controlled with medication at this time, still talkative. We will continue the current treatment. Medically stable, will plan for placement. Objective - Vital Signs/Intake and Output Vital Signs (last 24 hours): Temp Pulse Resp BP Pulse Ox 98.5 F 85 20 115/71 97 12/31/17 23:52 12/31/17 23:52 12/31/17 23:52 12/31/17 23:52 12/31/17 23:52 Intake and Output: 01/01/18 01/01/18 06:59 18:59 Intake Total 200 Balance 200 - Medications Medications: Current Medications Amlodipine Besylate (Norvasc) 10 mg PO DAILY [facility] Last Admin: 12/31/17 09:50 Dose: 10 mg Diphenhydramine HCl (Benadryl) 25 mg IM Q6 PRN PRN Reason: Agitation Diphenhydramine HCl (Benadryl) 25 mg PO TID [facility] Last Admin: 12/31/17 17:44 Dose: 25 mg Gabapentin (Neurontin) 300 mg PO TID [facility] Last Admin: 12/31/17 17:44 Dose: 300 mg Haloperidol (Haldol) 5 mg PO TID [facility] Last Admin: 12/31/17 17:44 Dose: 5 mg Haloperidol Lactate (Haldol) 5 mg IM Q4 PRN PRN Reason: Agitation Ceftriaxone Sodium 1 gm/ (Sodium Chloride) 100 mls @ 200 mls/hr IVPB DAILY [facility] PRN Reason: Protocol Last Admin: 12/31/17 09:37 Dose: 200 mls/hr - Labs Labs: 12/31/17 08:15 12/31/17 08:15 PT 12.7 SECONDS (9.7-12.2) H 12/26/17 08:43 INR 1.2 12/26/17 08:43 APTT 36 SECONDS (21-34) H 12/26/17 08:43
[2018-01-01] MEDS: DiphenhydrAMINE 50 mg/ml Inj IM PRN (13:58)
--- NOTE | 2018-01-02 09:33 | CP.PCM.PN ---
Subjective - Date & Time of Evaluation Date of Evaluation: 01/02/18 Time of Evaluation: 09:33 - Subjective Subjective: Patient is still talking herself. Patient is only drinking liquid diet. She is refusing to take solid food. Not in any distress. No chest pain or shortness of breath. On examination: Vital signs stable. Mild tachycardia Blood pressure 150/75 respirations 20 heartbeat is 99. Chest good air entry regular heart sounds nontender abdominal pedal edema Patient is following simple commands Assessment and recommendation: 62-year-old female with a history of hypertension high cholesterol admitted to the hospital with delirium. Metabolic encephalopathy. Urinary tract infection, on antibiotic. We will continue the current treatment. And will follow the patient. Objective - Vital Signs/Intake and Output Vital Signs (last 24 hours): Temp Pulse Resp BP Pulse Ox 98.5 F 99 H 20 150/75 100 01/02/18 08:00 01/02/18 08:00 01/02/18 08:00 01/02/18 08:00 01/02/18 08:00 Intake and Output: 01/02/18 01/02/18 06:59 18:59 Intake Total 250 Balance 250 - Medications Medications: Current Medications Amlodipine Besylate (Norvasc) 10 mg PO DAILY [facility] Last Admin: 01/01/18 10:54 Dose: 10 mg Diphenhydramine HCl (Benadryl) 25 mg IM Q6 PRN PRN Reason: Agitation Last Admin: 01/01/18 13:58 Dose: 25 mg Diphenhydramine HCl (Benadryl) 25 mg PO TID [facility] Last Admin: 01/01/18 17:46 Dose: Not Given Gabapentin (Neurontin) 300 mg PO TID [facility] Last Admin: 01/01/18 17:47 Dose: Not Given Haloperidol (Haldol) 5 mg PO TID [facility] Last Admin: 01/01/18 17:47 Dose: Not Given Haloperidol Lactate (Haldol) 5 mg IM Q4 PRN PRN Reason: Agitation Last Admin: 01/02/18 00:42 Dose: 5 mg Ceftriaxone Sodium 1 gm/ (Sodium Chloride) 100 mls @ 200 mls/hr IVPB DAILY [facility] PRN Reason: Protocol Last Admin: 01/01/18 09:31 Dose: 200 mls/hr - Labs Labs: 12/31/17 08:15 12/31/17 08:15 PT 12.7 SECONDS (9.7-12.2) H 12/26/17 08:43 INR 1.2 12/26/17 08:43 APTT 36 SECONDS (21-34) H 12/26/17 08:43
--- NOTE | 2018-01-03 12:36 | CP.PCM.PN ---
Subjective - Date & Time of Evaluation Date of Evaluation: 01/03/18 Time of Evaluation: 12:34 - Subjective Subjective: Patient is no more better. She is awake and responding. She is continuously talking. Answering simple questions. Eating better now. She denies any nausea vomiting On examination vital signs stable. 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 No recent labs. Assessment/recommendation: 62-year-old female with history of schizophrenia on multiple medications and hypertension admitted to the hospital with altered mental status, urosepsis, improved. Currently awaiting for psychiatric evaluation and management, and possible placement. Will follow the patient Objective - Vital Signs/Intake and Output Vital Signs (last 24 hours): Temp Pulse Resp BP Pulse Ox 98.8 F 87 20 113/63 96 01/03/18 08:53 01/03/18 08:53 01/03/18 08:53 01/03/18 08:53 01/03/18 08:53 - Medications Medications: Current Medications Amlodipine Besylate (Norvasc) 10 mg PO DAILY [facility] Last Admin: 01/03/18 10:01 Dose: 10 mg Diphenhydramine HCl (Benadryl) 25 mg IM Q6 PRN PRN Reason: Agitation Last Admin: 01/01/18 13:58 Dose: 25 mg Diphenhydramine HCl (Benadryl) 25 mg PO TID [facility] Last Admin: 01/03/18 10:01 Dose: 25 mg Gabapentin (Neurontin) 300 mg PO TID [facility] Last Admin: 01/03/18 10:01 Dose: 300 mg Haloperidol (Haldol) 5 mg PO TID [facility] Last Admin: 01/03/18 10:01 Dose: 5 mg Haloperidol Lactate (Haldol) 5 mg IM Q4 PRN PRN Reason: Agitation Last Admin: 01/02/18 00:42 Dose: 5 mg - Labs Labs: 12/31/17 08:15 12/31/17 08:15 PT 12.7 SECONDS (9.7-12.2) H 12/26/17 08:43 INR 1.2 12/26/17 08:43 APTT 36 SECONDS (21-34) H 12/26/17 08:43
[2018-01-03] MEDS: DiphenhydrAMINE 50 mg/ml Inj IM PRN (17:10)
[2018-01-04] MEDS: DiphenhydrAMINE 50 mg/ml Inj IM PRN (01:06)
--- NOTE | 2018-01-05 08:22 | CP.PCM.PN ---
Subjective - Date & Time of Evaluation Date of Evaluation: 01/04/18 Time of Evaluation: 08:21 - Subjective Subjective: Patient is still talkative, comfortable otherwise, receiving antibiotic. Not in any distress. No chest pain or shortness of breath, eating better Vital signs stable. 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 Assessment and recommendation: 62-year-old female with a schizophrenia, urinary tract infection admitted with altered mental status secondary to possible urosepsis, improving. Awaiting for placement Objective - Vital Signs/Intake and Output Vital Signs (last 24 hours): Temp Pulse Resp BP Pulse Ox 98.1 F 71 20 105/55 L 97 01/05/18 00:00 01/05/18 00:00 01/05/18 00:00 01/05/18 00:00 01/05/18 00:00 - Medications Medications: Current Medications Amlodipine Besylate (Norvasc) 10 mg PO DAILY [facility] Last Admin: 01/04/18 10:22 Dose: 10 mg Diphenhydramine HCl (Benadryl) 25 mg IM Q6 PRN PRN Reason: Agitation Last Admin: 01/04/18 01:06 Dose: 25 mg Diphenhydramine HCl (Benadryl) 25 mg PO TID [facility] Last Admin: 01/04/18 19:22 Dose: Not Given Gabapentin (Neurontin) 300 mg PO TID [facility] Last Admin: 01/04/18 21:35 Dose: Not Given Haloperidol (Haldol) 5 mg PO TID [facility] Last Admin: 01/04/18 19:23 Dose: Not Given Haloperidol Lactate (Haldol) 5 mg IM Q4 PRN PRN Reason: Agitation Last Admin: 01/04/18 01:05 Dose: 5 mg - Labs Labs: 12/31/17 08:15 12/31/17 08:15 PT 12.7 SECONDS (9.7-12.2) H 12/26/17 08:43 INR 1.2 12/26/17 08:43 APTT 36 SECONDS (21-34) H 12/26/17 08:43
--- NOTE | 2018-01-05 10:03 | CP.PCM.PN ---
Subjective - Date & Time of Evaluation Date of Evaluation: 01/05/18 Time of Evaluation: 10:02 - Subjective Subjective: DISCUSSED WITH DR. PETERS AND THE PT IS CURRENTLY MEDICALLY STABLE AND CLEARED TO BEGIN THE SCREENING PROCESS THROUGH [facility] [place] [place]. THERE IS NO NEED FOR FURTHER ABX PER DR. PETERS WELL. I DISCUSSED THIS PLAN WITH SARAH RODRIGUEZ, WHO WILL HAVE THE [facility] [place] [place] SCREENER COME TO EVALUATE THE PT FOR PSYCH PLACEMENT. NO FURTHER ORDERS AT THIS TIME. Objective - Vital Signs/Intake and Output Vital Signs (last 24 hours): Temp Pulse Resp BP Pulse Ox 97.8 F 87 20 124/66 98 01/05/18 08:00 01/05/18 08:00 01/05/18 08:00 01/05/18 08:00 01/05/18 08:00 - Medications Medications: Current Medications Amlodipine Besylate (Norvasc) 10 mg PO DAILY [facility] Last Admin: 01/05/18 09:26 Dose: 10 mg Diphenhydramine HCl (Benadryl) 25 mg IM Q6 PRN PRN Reason: Agitation Last Admin: 01/04/18 01:06 Dose: 25 mg Diphenhydramine HCl (Benadryl) 25 mg PO TID [facility] Last Admin: 01/05/18 09:26 Dose: 25 mg Gabapentin (Neurontin) 300 mg PO TID [facility] Last Admin: 01/05/18 09:26 Dose: 300 mg Haloperidol (Haldol) 5 mg PO TID [facility] Last Admin: 01/05/18 09:27 Dose: 5 mg Haloperidol Lactate (Haldol) 5 mg IM Q4 PRN PRN Reason: Agitation Last Admin: 01/04/18 01:05 Dose: 5 mg - Labs Labs: 12/31/17 08:15 12/31/17 08:15 PT 12.7 SECONDS (9.7-12.2) H 12/26/17 08:43 INR 1.2 12/26/17 08:43 APTT 36 SECONDS (21-34) H 12/26/17 08:43
--- NOTE | 2018-01-05 18:52 | CP.PCM.PN ---
Subjective - Date & Time of Evaluation Date of Evaluation: 01/05/18 Time of Evaluation: 18:51 - Subjective Subjective: Patient is clinical stable. See sitting up. Not in any distress. Vital signs are stable. Still talkative. Chest good air entry bilaterally regular heart sound nontender abdomen Assessment and recommendation: 62-year-old female with a schizophrenia, behavioral disorder. Admitted with the urosepsis, altered mental status stable now. Awaiting for placement at psychiatric unit. Objective - Vital Signs/Intake and Output Vital Signs (last 24 hours): Temp Pulse Resp BP Pulse Ox 97.7 F 106 H 20 130/83 97 01/05/18 16:00 01/05/18 16:00 01/05/18 16:00 01/05/18 16:00 01/05/18 16:00 Intake and Output: 01/05/18 01/05/18 06:59 18:59 Intake Total 500 Balance 500 - Medications Medications: Current Medications Amlodipine Besylate (Norvasc) 10 mg PO DAILY [facility] Last Admin: 01/05/18 09:26 Dose: 10 mg Diphenhydramine HCl (Benadryl) 25 mg IM Q6 PRN PRN Reason: Agitation Last Admin: 01/04/18 01:06 Dose: 25 mg Diphenhydramine HCl (Benadryl) 25 mg PO TID [facility] Last Admin: 01/05/18 18:23 Dose: 25 mg Gabapentin (Neurontin) 300 mg PO TID [facility] Last Admin: 01/05/18 18:23 Dose: 300 mg Haloperidol (Haldol) 5 mg PO TID [facility] Last Admin: 01/05/18 18:23 Dose: 5 mg Haloperidol Lactate (Haldol) 5 mg IM Q4 PRN PRN Reason: Agitation Last Admin: 01/04/18 01:05 Dose: 5 mg - Labs Labs: 12/31/17 08:15 12/31/17 08:15 PT 12.7 SECONDS (9.7-12.2) H 12/26/17 08:43 INR 1.2 12/26/17 08:43 APTT 36 SECONDS (21-34) H 12/26/17 08:43
[2018-01-06 12:01] LABS: URINE BILIRUBIN NEGATIVE (NEGATIVE); URINE BLOOD NEGATIVE (NEGATIVE); URINE CLARITY Clear (Clear); URINE COLOR Straw (YELLOW); URINE GLUCOSE (UA) NORMAL (Normal); URINE LEUKOCYTE ESTERASE NEG Leu/uL (Negative); URINE PROTEIN NEGATIVE (NEGATIVE); URINE UROBILINOGEN NORMAL mg/dL (0.2-1.0)
--- NOTE | 2018-01-06 21:27 | CP.PCM.PN ---
Subjective - Date & Time of Evaluation Date of Evaluation: 01/06/18 Time of Evaluation: 21:26 - Subjective Subjective: Patient is comfortable not in any distress. She is awake and responding. Not in any distress Eating well. On examination: Vital signs stable. 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 No recent labs new Assessment and recommendation: 62-year-old female with a schizophrenia, behavioral disorder, admitted to the hospital with altered mental status and urosepsis stable now. We will continue the current treatment. Awaiting for psychotic evaluation, and possible placement Objective - Vital Signs/Intake and Output Vital Signs (last 24 hours): Temp Pulse Resp BP Pulse Ox 98.6 F 87 20 101/54 L 100 01/06/18 16:00 01/06/18 16:00 01/06/18 16:00 01/06/18 16:00 01/06/18 16:00 Intake and Output: 01/06/18 01/07/18 18:59 06:59 Intake Total 500 Balance 500 - Medications Medications: Current Medications Amlodipine Besylate (Norvasc) 10 mg PO DAILY [facility] Last Admin: 01/06/18 10:06 Dose: 10 mg Diphenhydramine HCl (Benadryl) 25 mg IM Q6 PRN PRN Reason: Agitation Last Admin: 01/04/18 01:06 Dose: 25 mg Diphenhydramine HCl (Benadryl) 25 mg PO TID [facility] Last Admin: 01/06/18 17:39 Dose: 25 mg Gabapentin (Neurontin) 300 mg PO TID [facility] Last Admin: 01/06/18 17:39 Dose: 300 mg Haloperidol (Haldol) 5 mg PO TID [facility] Last Admin: 01/06/18 17:39 Dose: 5 mg Haloperidol Lactate (Haldol) 5 mg IM Q4 PRN PRN Reason: Agitation Last Admin: 01/04/18 01:05 Dose: 5 mg - Labs Labs: 12/31/17 08:15 12/31/17 08:15 PT 12.7 SECONDS (9.7-12.2) H 12/26/17 08:43 INR 1.2 12/26/17 08:43 APTT 36 SECONDS (21-34) H 12/26/17 08:43
[2018-01-07 16:52] LABS: HEMOGLOBIN 11.7 g/dL (11.0-16.0); MEAN CELL VOLUME 69.4 fL (81.0-99.0); MEAN CORPUSCULAR HEMOGLOBIN 22.3 pg (27.0-31.0); MEAN CORPUSCULAR HGB CONC 32.1 g/dL (33.0-37.0); MEAN PLATELET VOLUME 8.5 fL (7.2-11.7); RBC 5.24 Mil/uL (3.80-5.20); RED CELL DISTRIBUTION WIDTH 16.2 % (11.5-14.5); WHITE BLOOD COUNT 7.4 K/uL (4.8-10.8)
[2018-01-07 17:00] LABS: PROTHROMBIN TIME 10.6 SECONDS (9.7-12.2)
[2018-01-07 17:17] LABS: ALB/GLOB RATIO 1.4 (1.0-2.1); ALT/SGPT 52 U/L (9-52); AST/SGOT 32 U/L (14-36); BLOOD UREA NITROGEN 19 mg/dL (7-17); CALCIUM 9.3 mg/dl (8.6-10.4); GFR AFRICAN-AMERICAN > 60; GFR NON-AFRICAN AMERICAN > 60
[2018-01-08 01:57] VITALS: RESP 20
--- NOTE | 2018-01-08 18:12 | CP.PCM.PN ---
Subjective - Date & Time of Evaluation Date of Evaluation: 01/08/18 Time of Evaluation: 18:12 - Subjective Subjective: Patient is awake and responding. Not in any distress. Vital signs stable. Patient is still awaiting for placement at the rehab. We will continue the antipsychotic medications. Patient is a 62-year-old female with a history of schizophrenia admitted with altered mental and urosepsis. Currently stable. We will continue the current one-to-one observation and routine medical examination. Antihypertensives. Objective - Vital Signs/Intake and Output Vital Signs (last 24 hours): Temp Pulse Resp BP Pulse Ox 98.0 F 93 H 20 119/75 98 01/08/18 16:08 01/08/18 16:08 01/08/18 16:08 01/08/18 16:08 01/08/18 16:08 Intake and Output: 01/08/18 01/08/18 06:59 18:59 Intake Total 200 240 Balance 200 240 - Medications Medications: Current Medications Amlodipine Besylate (Norvasc) 10 mg PO DAILY [facility] Last Admin: 01/08/18 09:57 Dose: Not Given Diphenhydramine HCl (Benadryl) 25 mg IM Q6 PRN PRN Reason: Agitation Last Admin: 01/04/18 01:06 Dose: 25 mg Diphenhydramine HCl (Benadryl) 25 mg PO TID [facility] Last Admin: 01/08/18 18:01 Dose: 25 mg Gabapentin (Neurontin) 300 mg PO TID [facility] Last Admin: 01/08/18 18:00 Dose: 300 mg Haloperidol (Haldol) 5 mg PO TID [facility] Last Admin: 01/08/18 18:01 Dose: 5 mg Haloperidol Lactate (Haldol) 5 mg IM Q4 PRN PRN Reason: Agitation Last Admin: 01/04/18 01:05 Dose: 5 mg - Labs Labs: 01/07/18 16:43 01/07/18 16:43 PT 10.6 SECONDS (9.7-12.2) 01/07/18 16:43 INR 1.0 01/07/18 16:43 APTT 36 SECONDS (21-34) H 01/07/18 16:43
--- NOTE | 2018-01-08 18:12 | CP.PCM.PN ---
Subjective - Date & Time of Evaluation Date of Evaluation: 01/07/18 Time of Evaluation: 18:11 - Subjective Subjective: Patient is awake and responding. Not in any distress. Vital signs stable. Patient is still awaiting for placement at the rehab. We will continue the antipsychotic medications. Patient is a 62-year-old female with a history of schizophrenia admitted with altered mental and urosepsis. Currently stable. We will continue the current one-to-one observation and routine medical examination. Antihypertensives. Objective - Vital Signs/Intake and Output Vital Signs (last 24 hours): Temp Pulse Resp BP Pulse Ox 98.0 F 93 H 20 119/75 98 01/08/18 16:08 01/08/18 16:08 01/08/18 16:08 01/08/18 16:08 01/08/18 16:08 Intake and Output: 01/08/18 01/08/18 06:59 18:59 Intake Total 200 240 Balance 200 240 - Medications Medications: Current Medications Amlodipine Besylate (Norvasc) 10 mg PO DAILY [facility] Last Admin: 01/08/18 09:57 Dose: Not Given Diphenhydramine HCl (Benadryl) 25 mg IM Q6 PRN PRN Reason: Agitation Last Admin: 01/04/18 01:06 Dose: 25 mg Diphenhydramine HCl (Benadryl) 25 mg PO TID [facility] Last Admin: 01/08/18 18:01 Dose: 25 mg Gabapentin (Neurontin) 300 mg PO TID [facility] Last Admin: 01/08/18 18:00 Dose: 300 mg Haloperidol (Haldol) 5 mg PO TID [facility] Last Admin: 01/08/18 18:01 Dose: 5 mg Haloperidol Lactate (Haldol) 5 mg IM Q4 PRN PRN Reason: Agitation Last Admin: 01/04/18 01:05 Dose: 5 mg - Labs Labs: 01/07/18 16:43 01/07/18 16:43 PT 10.6 SECONDS (9.7-12.2) 01/07/18 16:43 INR 1.0 01/07/18 16:43 APTT 36 SECONDS (21-34) H 01/07/18 16:43
--- NOTE | 2018-01-10 08:08 | CP.PCM.PN ---
Subjective - Date & Time of Evaluation Date of Evaluation: 01/10/18 Time of Evaluation: 08:08 - Subjective Subjective: Patient is currently feeling better. No new changes. Eating well. Ambulating. Awaiting for placement. Objective - Vital Signs/Intake and Output Vital Signs (last 24 hours): Temp Pulse Resp BP Pulse Ox 98.3 F 82 20 109/69 97 01/10/18 00:01 01/10/18 00:01 01/10/18 00:01 01/10/18 00:01 01/10/18 00:01 Intake and Output: 01/10/18 01/10/18 06:59 18:59 Intake Total 700 Balance 700 - Medications Medications: Current Medications Amlodipine Besylate (Norvasc) 10 mg PO DAILY [facility] Last Admin: 01/09/18 10:49 Dose: 10 mg Diphenhydramine HCl (Benadryl) 25 mg IM Q6 PRN PRN Reason: Agitation Last Admin: 01/04/18 01:06 Dose: 25 mg Diphenhydramine HCl (Benadryl) 25 mg PO TID [facility] Last Admin: 01/09/18 17:38 Dose: 25 mg Gabapentin (Neurontin) 300 mg PO TID [facility] Last Admin: 01/09/18 17:38 Dose: 300 mg Haloperidol (Haldol) 5 mg PO TID [facility] Last Admin: 01/09/18 17:38 Dose: 5 mg Haloperidol Lactate (Haldol) 5 mg IM Q4 PRN PRN Reason: Agitation Last Admin: 01/04/18 01:05 Dose: 5 mg - Labs Labs: 01/07/18 16:43 01/07/18 16:43 PT 10.6 SECONDS (9.7-12.2) 01/07/18 16:43 INR 1.0 01/07/18 16:43 APTT 36 SECONDS (21-34) H 01/07/18 16:43
--- NOTE | 2018-01-10 08:08 | CP.PCM.PN ---
Subjective - Date & Time of Evaluation Date of Evaluation: 01/09/18 Time of Evaluation: 21:53 - Subjective Subjective: Patient is currently feeling better. No new changes. Eating well. Ambulating. Awaiting for placement. Objective - Vital Signs/Intake and Output Vital Signs (last 24 hours): Temp Pulse Resp BP Pulse Ox 98.3 F 82 20 109/69 97 01/10/18 00:01 01/10/18 00:01 01/10/18 00:01 01/10/18 00:01 01/10/18 00:01 Intake and Output: 01/10/18 01/10/18 06:59 18:59 Intake Total 700 Balance 700 - Medications Medications: Current Medications Amlodipine Besylate (Norvasc) 10 mg PO DAILY [facility] Last Admin: 01/09/18 10:49 Dose: 10 mg Diphenhydramine HCl (Benadryl) 25 mg IM Q6 PRN PRN Reason: Agitation Last Admin: 01/04/18 01:06 Dose: 25 mg Diphenhydramine HCl (Benadryl) 25 mg PO TID [facility] Last Admin: 01/09/18 17:38 Dose: 25 mg Gabapentin (Neurontin) 300 mg PO TID [facility] Last Admin: 01/09/18 17:38 Dose: 300 mg Haloperidol (Haldol) 5 mg PO TID [facility] Last Admin: 01/09/18 17:38 Dose: 5 mg Haloperidol Lactate (Haldol) 5 mg IM Q4 PRN PRN Reason: Agitation Last Admin: 01/04/18 01:05 Dose: 5 mg - Labs Labs: 01/07/18 16:43 01/07/18 16:43 PT 10.6 SECONDS (9.7-12.2) 01/07/18 16:43 INR 1.0 01/07/18 16:43 APTT 36 SECONDS (21-34) H 01/07/18 16:43
[2018-01-10 09:16] LABS: BASO # 0.1 K/uL (0.0-0.2); BASO % 0.8 % (0.0-2.0); EOS # 0.2 K/uL (0.0-0.7); EOS % 3.6 % (0.0-4.0); LYMPH # 2.8 K/uL (1.0-4.3); LYMPH % 40.9 % (20.0-40.0); MEAN CELL VOLUME 69.6 fL (81.0-99.0); MEAN CORPUSCULAR HEMOGLOBIN 23.1 pg (27.0-31.0); MEAN CORPUSCULAR HGB CONC 33.1 g/dL (33.0-37.0); MONO # 0.6 K/uL (0.0-0.8); MONO % 8.4 % (0.0-10.0); NEUT # 3.2 K/uL (1.8-7.0); NEUT % 46.3 % (50.0-75.0); RBC 4.76 Mil/uL (3.80-5.20); RED CELL DISTRIBUTION WIDTH 16.6 % (11.5-14.5); WHITE BLOOD COUNT 6.8 K/uL (4.8-10.8)
[2018-01-10 09:23] LABS: ALB/GLOB RATIO 1.3 (1.0-2.1); ALBUMIN 3.6 g/dL (3.5-5.0); ALT/SGPT 48 U/L (9-52); AST/SGOT 34 U/L (14-36); BLOOD UREA NITROGEN 19 mg/dL (7-17); CALCIUM 9.2 mg/dl (8.6-10.4); GFR AFRICAN-AMERICAN > 60; GFR NON-AFRICAN AMERICAN > 60
--- NOTE | 2018-01-11 07:48 | CP.PCM.PN ---
Subjective - Date & Time of Evaluation Date of Evaluation: 01/11/18 Time of Evaluation: 07:48 - Subjective Subjective: Patient is currently feeling better. No new changes. Eating well. Ambulating. Awaiting for placement. Objective - Vital Signs/Intake and Output Vital Signs (last 24 hours): Temp Pulse Resp BP Pulse Ox 98.7 F 73 20 110/70 96 01/11/18 07:29 01/11/18 07:29 01/11/18 07:29 01/11/18 07:29 01/11/18 07:29 Intake and Output: 01/11/18 01/11/18 06:59 18:59 Intake Total 450 Output Total 0 Balance 450 - Medications Medications: Current Medications Amlodipine Besylate (Norvasc) 10 mg PO DAILY [facility] Last Admin: 01/10/18 09:55 Dose: 10 mg Diphenhydramine HCl (Benadryl) 25 mg IM Q6 PRN PRN Reason: Agitation Last Admin: 01/04/18 01:06 Dose: 25 mg Diphenhydramine HCl (Benadryl) 25 mg PO TID [facility] Last Admin: 01/10/18 17:38 Dose: 25 mg Gabapentin (Neurontin) 300 mg PO TID [facility] Last Admin: 01/10/18 17:38 Dose: 300 mg Haloperidol (Haldol) 5 mg PO TID [facility] Last Admin: 01/10/18 17:38 Dose: 5 mg Haloperidol Lactate (Haldol) 5 mg IM Q4 PRN PRN Reason: Agitation Last Admin: 01/04/18 01:05 Dose: 5 mg - Labs Labs: 01/10/18 08:58 01/10/18 08:58 PT 10.6 SECONDS (9.7-12.2) 01/07/18 16:43 INR 1.0 01/07/18 16:43 APTT 36 SECONDS (21-34) H 01/07/18 16:43
--- NOTE | 2018-01-11 15:30 | CARD ---
APPROVED REPORT EKG Measurement Heart [id number] <Conclusion> Normal sinus rhythm with sinus arrhythmia Normal ECG
--- NOTE | 2018-01-12 19:08 | CP.PCM.PN ---
Subjective - Date & Time of Evaluation Date of Evaluation: 01/12/18 Time of Evaluation: 19:07 - Subjective Subjective: Patient is not in any distress. Comfortable Not in any distress Vital signs stable. Chest good air entry Patient is currently awaiting for placement in the involuntary psychiatric unit. Meanwhile will continue the current treatment. Will follow-up the Objective - Vital Signs/Intake and Output Vital Signs (last 24 hours): Temp Pulse Resp BP Pulse Ox 97.6 F 80 20 111/60 100 01/12/18 16:00 01/12/18 16:00 01/12/18 16:00 01/12/18 16:00 01/12/18 16:00 Intake and Output: 01/12/18 01/13/18 18:59 06:59 Intake Total 740 Balance 740 - Medications Medications: Current Medications Amlodipine Besylate (Norvasc) 10 mg PO DAILY [facility] Last Admin: 01/12/18 10:33 Dose: 10 mg Diphenhydramine HCl (Benadryl) 25 mg IM Q6 PRN PRN Reason: Agitation Last Admin: 01/04/18 01:06 Dose: 25 mg Diphenhydramine HCl (Benadryl) 25 mg PO TID [facility] Last Admin: 01/12/18 17:38 Dose: 25 mg Gabapentin (Neurontin) 300 mg PO TID [facility] Last Admin: 01/12/18 17:38 Dose: 300 mg Haloperidol (Haldol) 5 mg PO TID [facility] Last Admin: 01/12/18 17:38 Dose: 5 mg Haloperidol Lactate (Haldol) 5 mg IM Q4 PRN PRN Reason: Agitation Last Admin: 01/04/18 01:05 Dose: 5 mg - Labs Labs: 01/10/18 08:58 01/10/18 08:58 PT 10.6 SECONDS (9.7-12.2) 01/07/18 16:43 INR 1.0 01/07/18 16:43 APTT 36 SECONDS (21-34) H 01/07/18 16:43
--- NOTE | 2018-01-13 21:55 | CP.PCM.PN ---
Subjective - Date & Time of Evaluation Date of Evaluation: 01/13/18 Time of Evaluation: 21:54 - Subjective Subjective: Patient is currently comfortable. Sleeping at this time. Eating well. Patient was ambulating and participating physical exercise. On examination: Vital signs stable. Good air entry regular heart sounds nontender abdominal pedal edema noted. Assessment and recommendation: 62-year-old female with high cholesterol and hypertension schizophrenia. Awaiting for placement. Stable. Objective - Vital Signs/Intake and Output Vital Signs (last 24 hours): Temp Pulse Resp BP Pulse Ox 97.3 F L 87 20 106/69 100 01/13/18 16:00 01/13/18 16:00 01/13/18 16:00 01/13/18 16:00 01/13/18 16:00 - Medications Medications: Current Medications Amlodipine Besylate (Norvasc) 10 mg PO DAILY [facility] Last Admin: 01/13/18 10:45 Dose: 10 mg Diphenhydramine HCl (Benadryl) 25 mg IM Q6 PRN PRN Reason: Agitation Last Admin: 01/04/18 01:06 Dose: 25 mg Diphenhydramine HCl (Benadryl) 25 mg PO TID [facility] Last Admin: 01/13/18 17:36 Dose: 25 mg Gabapentin (Neurontin) 300 mg PO TID [facility] Last Admin: 01/13/18 17:36 Dose: 300 mg Haloperidol (Haldol) 5 mg PO TID [facility] Last Admin: 01/13/18 17:36 Dose: 5 mg Haloperidol Lactate (Haldol) 5 mg IM Q4 PRN PRN Reason: Agitation Last Admin: 01/04/18 01:05 Dose: 5 mg - Labs Labs: 01/10/18 08:58 01/10/18 08:58 PT 10.6 SECONDS (9.7-12.2) 01/07/18 16:43 INR 1.0 01/07/18 16:43 APTT 36 SECONDS (21-34) H 01/07/18 16:43
--- NOTE | 2018-01-14 13:50 | PCM.PYCHPN ---
Psychiatric Progress Note - Psychiatric Progress Note Patient seen today, length of contact: 15 min Patient Chief Complaint: I'm feeling better Problems Identified/Issues Discussed: Patient seen and evaluated, chart reviewed and discussed with the nurse. As per the staff, patient's brother who has POA, wants to take the patient home. Patient reports improvement in her mood. As per the staff she is not irritable and agitated any more. She is easily redirectable. And she remained calm and cooperative. However she is still somewhat disorganized and continues to have loose associations. She denies any auditory or visual hallucinations. She denies any SI/HI. She is taking medications and denies any side effects. Medication Change: No Medical Record Reviewed: Yes Mental Status Examination - Cognitive Function Orientation: Person, Place, Situation, Time Memory: Impaired Attention: Poor Concentration: WNL Association: Loose Fund of Knowledge: WNL - Mood Mood: Anxious - Affect Affect: Broad - Speech Speech: Appropriate - Formal Thought Process Formal Thought Process: Loosening of associations - Suicidal Ideation Suicidal Ideation: No - Homicidal Ideation Homicidal Ideation: No Goal/Treatment Plan - Goal/Treatment Plan Need for Continued Stay: Other Progress Toward Problem(s) and Goals/Treatment Plan: Schizoaffective disorder bipolar type Psychoeducation Supportive therapy, group therapy, individual therapy Haldol 5 mg by mouth TID Benadryl 25 mg by mouth TID Cogentin 1 mg by mouth twice a day Gabapentin 300 mg PO TID patient psychiatrically stable and clear for discharge to the family. As per the patient's brother, this is her baseline and he takes the full responsibility of her care. As per him, she is much better than when she came to the hospital. - Smoking Cessation Smoking Cessation Initiated: No
[2018-01-14 15:38] VITALS: BP 131/84; PULSE 109; TEMP 97.4; O2SAT 99
--- NOTE | 2018-01-14 16:02 | CP.PCM.PN ---
Subjective - Date & Time of Evaluation Date of Evaluation: 01/14/18 Time of Evaluation: 16:02 - Subjective Subjective: -FOLLOW UP WITH DR. PETERS IN THE OFFICE IN 1 WEEK---CALL THE OFFICE TO MAKE AN APPOINTMENT TIME. -HOME CARE SERVICES WILL BE PROVIDED TO YOU BY [facility]. -CONTINUE ALL MEDICATIONS FOLLOWS: 1) AMLODIPINE (FOR YOUR BLOOD PRESSURE) 10 MG---TAKE 1 TABLET BY MOUTH ONCE A DAY. 2) HALOPERIDOL 5 MG---TAKE 1 TABLET BY MOUTH 3 TIMES A DAY (MORNING, AFTERNOON AND BEDTIME). 3) GABAPENTIN 300 MG---TAKE 1 TABLET BY MOUTH 3 TIMES A DAY (MORNING, AFTERNOON AND BEDTIME). 4) BENADRYL 25 MG---TAKE 1 TABLET BY MOUTH 3 TIMES A DAY (MORNING, AFTERNOON AND BEDTIME). -FOR FURTHER QUESTIONS OR CONCERNS, CONTACT DR. PETERS'S OFFICE. Objective - Vital Signs/Intake and Output Vital Signs (last 24 hours): Temp Pulse Resp BP Pulse Ox 97.4 F L 109 H 20 131/84 99 01/14/18 15:00 01/14/18 15:00 01/14/18 15:00 01/14/18 15:00 01/14/18 15:00 Intake and Output: 01/14/18 01/14/18 06:59 18:59 Intake Total 480 600 Balance 480 600 - Medications Medications: Current Medications Amlodipine Besylate (Norvasc) 10 mg PO DAILY [facility] Last Admin: 01/14/18 09:56 Dose: 10 mg Diphenhydramine HCl (Benadryl) 25 mg IM Q6 PRN PRN Reason: Agitation Last Admin: 01/04/18 01:06 Dose: 25 mg Diphenhydramine HCl (Benadryl) 25 mg PO TID [facility] Last Admin: 01/14/18 13:12 Dose: 25 mg Gabapentin (Neurontin) 300 mg PO TID [facility] Last Admin: 01/14/18 13:13 Dose: 300 mg Haloperidol (Haldol) 5 mg PO TID [facility] Last Admin: 01/14/18 13:12 Dose: 5 mg Haloperidol Lactate (Haldol) 5 mg IM Q4 PRN PRN Reason: Agitation Last Admin: 01/04/18 01:05 Dose: 5 mg - Labs Labs: 01/10/18 08:58 01/10/18 08:58 PT 10.6 SECONDS (9.7-12.2) 01/07/18 16:43 INR 1.0 01/07/18 16:43 APTT 36 SECONDS (21-34) H 01/07/18 16:43
--- NOTE | 2018-01-14 22:22 | CP.PCM.DIS ---
Provider - Provider Date of Admission: 12/26/17 10:50 Attending physician: Chely Faulkner MD Time Spent in preparation of Discharge (in minutes): 45 Hospital Course - Lab Results Lab Results: Micro Results 01/06/18 11:50 Urine Urine Culture - Final No Growth (<1,000 CFU/ML) 12/26/17 08:40 Blood-Venous Blood Culture - Final NO GROWTH AFTER 5 DAYS 12/26/17 08:40 Blood-Venous Gram Stain - Final TEST NOT PERFORMED 12/26/17 08:40 Blood-Venous Blood Culture - Final NO GROWTH AFTER 5 DAYS 12/26/17 08:40 Blood-Venous Gram Stain - Final TEST NOT PERFORMED 12/26/17 09:15 Urine,Clean Catch Urine Culture - Final Escherichia Coli Most Recent Lab Values WBC 6.8 K/uL (4.8-10.8) 01/10/18 08:58 RBC 4.76 Mil/uL (3.80-5.20) 01/10/18 08:58 Hgb 11.0 g/dL (11.0-16.0) 01/10/18 08:58 Hct 33.1 % (34.0-47.0) L 01/10/18 08:58 MCV 69.6 fL (81.0-99.0) L 01/10/18 08:58 MCH 23.1 pg (27.0-31.0) L 01/10/18 08:58 MCHC 33.1 g/dL (33.0-37.0) 01/10/18 08:58 RDW 16.6 % (11.5-14.5) H 01/10/18 08:58 Plt Count 359 K/uL (130-400) 01/10/18 08:58 MPV 9.0 fL (7.2-11.7) 01/10/18 08:58 Neut % (Auto) 46.3 % (50.0-75.0) L 01/10/18 08:58 Lymph % (Auto) 40.9 % (20.0-40.0) H 01/10/18 08:58 [place] % (Auto) 8.4 % (0.0-10.0) 01/10/18 08:58 Eos % (Auto) 3.6 % (0.0-4.0) 01/10/18 08:58 Baso % (Auto) 0.8 % (0.0-2.0) 01/10/18 08:58 Neut # (Auto) 3.2 K/uL (1.8-7.0) 01/10/18 08:58 Lymph # (Auto) 2.8 K/uL (1.0-4.3) 01/10/18 08:58 [place] # (Auto) 0.6 K/uL (0.0-0.8) 01/10/18 08:58 Eos # (Auto) 0.2 K/uL (0.0-0.7) 01/10/18 08:58 Baso # (Auto) 0.1 K/uL (0.0-0.2) 01/10/18 08:58 Neutrophils % (Manual) 81 % (50-75) H 12/26/17 08:43 Band Neutrophils % 2 % (0-2) 12/26/17 08:43 Lymphocytes % (Manual) 8 % (20-40) L 12/26/17 08:43 Monocytes % (Manual) 8 % (0-10) 12/26/17 08:43 Basophils % (Manual) 1 % (0-2) 12/26/17 08:43 Platelet Estimate Normal (NORMAL) 12/26/17 08:43 Hypochromasia (manual) Slight 12/26/17 08:43 Poikilocytosis (manual Slight 12/26/17 08:43 Anisocytosis (manual) Slight 12/26/17 08:43 [place]is Cells Slight 12/26/17 08:43 PT 10.6 SECONDS (9.7-12.2) 01/07/18 16:43 INR 1.0 01/07/18 16:43 APTT 36 SECONDS (21-34) H 01/07/18 16:43 Sodium 142 mmol/L (132-148) 01/10/18 08:58 Potassium 4.1 mmol/L (3.6-5.2) 01/10/18 08:58 Chloride 104 mmol/L (98-107) 01/10/18 08:58 Carbon Dioxide 28 mmol/L (22-30) 01/10/18 08:58 Anion Gap 14 (10-20) 01/10/18 08:58 BUN 19 mg/dL (7-17) H 01/10/18 08:58 Creatinine 0.6 mg/dL (0.7-1.2) L 01/10/18 08:58 Est GFR ( Amer) > 60 01/10/18 08:58 Est GFR (Non-Af Amer) > 60 01/10/18 08:58 POC Glucose (mg/dL) 167 mg/dL (65-110) H 12/26/17 08:10 Random Glucose 85 mg/dL (65-105) 01/10/18 08:58 Calcium 9.2 mg/dl (8.6-10.4) 01/10/18 08:58 Phosphorus 3.0 mg/dL (2.5-4.5) 12/28/17 06:50 Magnesium 2.1 mg/dL (1.6-2.3) 12/28/17 06:50 Total Bilirubin 0.4 mg/dL (0.2-1.3) 01/10/18 08:58 AST 34 U/L (14-36) 01/10/18 08:58 ALT 48 U/L (9-52) 01/10/18 08:58 Alkaline Phosphatase 75 U/L (38-126) 01/10/18 08:58 Ammonia 17 umol/L (9-33) 12/26/17 08:43 Total Creatine Kinase 224 U/L (30-135) H 12/26/17 08:43 CK-MB (Mass) 2.60 ng/mL (0.0-3.38) 12/26/17 08:43 Troponin I 0.0880 ng/mL (0.00-0.120) 12/26/17 08:43 Total Protein 6.3 g/dL (6.3-8.3) 01/10/18 08:58 Albumin 3.6 g/dL (3.5-5.0) 01/10/18 08:58 Globulin 2.7 gm/dL (2.2-3.9) 01/10/18 08:58 Albumin/Globulin Ratio 1.3 (1.0-2.1) 01/10/18 08:58 TSH 3rd Generation 2.28 mIU/L (0.46-4.68) 12/28/17 06:50 Urine Color Straw (YELLOW) 01/06/18 11:50 Urine Clarity Clear (Clear) 01/06/18 11:50 Urine pH 8.0 (5.0-8.0) 01/06/18 11:50 Ur Specific [place] 1.004 (1.003-1.030) 01/06/18 11:50 Urine Protein Negative mg/dL (NEGATIVE) 01/06/18 11:50 Urine Glucose (UA) Normal mg/dL (Normal) 01/06/18 11:50 Urine Ketones Negative mg/dL (NEGATIVE) 01/06/18 11:50 Urine Blood Negative (NEGATIVE) 01/06/18 11:50 Urine Nitrate Negative (NEGATIVE) 01/06/18 11:50 Urine Bilirubin Negative (NEGATIVE) 01/06/18 11:50 Urine Urobilinogen Normal mg/dL (0.2-1.0) 01/06/18 11:50 Ur Leukocyte Esterase Neg Dipesh/uL (Negative) 01/06/18 11:50 Urine WBC (Auto) 6 /hpf (0-5) H 12/26/17 09:15 Urine RBC (Auto) 11 /hpf (0-3) H 12/26/17 09:15 Ur Squamous Epith Cells 2 /hpf (0-5) 12/26/17 09:15 Amorphous Sediment Rare /ul (<OCC) H 12/26/17 09:15 Urine Bacteria Many (<OCC) H 12/26/17 09:15 Hyaline Casts 11-20 /lpf (0-2) H 12/26/17 09:15 Salicylates < 1.0 mg/dL 1 12/26/17 08:43 Urine Opiates Screen Negative (NEGATIVE) 12/26/17 09:15 Urine Methadone Screen Negative (NEGATIVE) 12/26/17 09:15 Acetaminophen < 10.0 ug/mL (10.0-30.0) L 12/26/17 08:43 Ur Barbiturates Screen Negative (NEGATIVE) 12/26/17 09:15 Ur Phencyclidine Scrn Negative (NEGATIVE) 12/26/17 09:15 Ur Amphetamines Screen Negative (NEGATIVE) 12/26/17 09:15 U Benzodiazepines Scrn Negative (NEGATIVE) 12/26/17 09:15 U Oth Cocaine Metabols Negative (NEGATIVE) 12/26/17 09:15 U Cannabinoids Screen Negative (NEGATIVE) 12/26/17 09:15 Alcohol, Quantitative < 10 mg/dl (0-10) 12/26/17 08:43 Blood Type O NEGATIVE 12/26/17 08:43 Antibody Screen Negative 12/26/17 08:43 - Hospital Course Hospital Course: Chief complaints: Brought in by ambulance because of the altered mental status History present illness: 62-year-old female with a history of schizophrenia, hypertension was found on the floor by family member, and called ambulance. When the EMS arrived the patient was minimally responsive, and she was not moving so patient was brought to the emergency room. According to the family members the patient was communicating the night before. Patient was in [facility], as an inpatient recently, but was released, now at home. According to the patient's brother who is main machine stonecutter, patient was getting more and more combative verbalizing. But after discharge from the place patient become more weak, not eating well. And today patient is not verbalizing, and not eating. And she become more lethargic. In the emergency room patient was sometimes able to come communicate, but unable to comprehend the conversation. Patient is so confused. Even in normal time in my office, agent is always talking by herself. She feels like there is at least 2-3 people in herself, and she complicated with each other all the time. But she can able to talk to us at times. Now patient is more lethargic, unable to arouse at this time, but otherwise comfortable Past medical history, schizophrenia, hypertension. Allergy no known drug allergy Personal history nonsmoker nonalcoholic Social history noted Patient is living with family members him a and also the brother is the main machine stonecutter. Review of system: Patient is somewhat lethargic, arousable easily. Communicating. Verbalizing at times. No distress. She is not complaining of any pain. On examination: Vital signs reviewed Chest good air entry, minimal mucosal dryness noted Regular heart sound Abdomen soft Nontender. Next images no pedal edema TAR MAN alert awake oriented Patient's labs reviewed Elevated sodium level, calcium level noted. Suspected dehydration Assessment and recommendation: 62-year-old female with a history of schizophrenia, hypertension admitted to the hospital with the increasing pathology. Metabolic encephalopathy Likely dehydration. Prerenal Also possible urinary tract infection. On antibiotic. IV fluid. Psychotic evaluation. Closely monitor. Will follow the patient Course in the Hospital: Patient initially started on intravenous antibiotic for possible suspected urinary tract infection. Intravenous fluids starts. Patient also seen by psychiatrist. Initial medication was on hold. Slowly her psychotic medication was reinstated. Urine culture showing evidence of Escherichia coli ESBL negative. Patient started on intravenous Rocephin. Patient tolerated antibiotic. Clinically improved markedly. Intravenous IV fluid was also discontinued after that. Patient physical therapy started. Able to ambulate She is feeling much better. Patient clinical stable. Currently patient is taking Benadryl as needed, Haldol 5 mg 3 times a day Gabapentin 300 mg 3 times a day Amlodipine 10 mg daily I spoke to the patient's a brother in detail. After multiple attempts for her to go to involuntary psychiatric unit, and there was no placement available, and patient also feeling much better, brother is ready to take her home. Patient will be discharged home. She will be seen by a psychiatric physiotherapist in the house periodically She will be following with a psychiatrist and in my office. Will follow-up the patient Final diagnoses: Altered mental status secondary to urinary tract infection. Severe dehydration Renal insufficiency Schizophrenia. Altered mental status improved. Discharge Plan - Discharge Medications Prescriptions: DiphenhydrAMINE [Benadryl] 25 mg PO TID #90 cap Gabapentin 300 mg PO TID #90 capsule Haloperidol [Haldol] 5 mg PO TID #90 tab amLODIPine [Norvasc] 10 mg PO DAILY #30 tab - Follow Up Plan Condition: GUARDED Disposition: HOME/ ROUTINE Instructions: Dehydration, Adult (DC), Altered Mental Status (DC), Acute Kidney Injury (DC), Urinary Tract Infection in Women (DC) Additional Instructions: -FOLLOW UP WITH DR. FAULKNER IN THE OFFICE IN 1 WEEK---CALL THE OFFICE TO MAKE AN APPOINTMENT TIME. -HOME CARE SERVICES WILL BE PROVIDED TO YOU BY [facility]. -CONTINUE ALL MEDICATIONS FOLLOWS: 1) AMLODIPINE (FOR YOUR BLOOD PRESSURE) 10 MG---TAKE 1 TABLET BY MOUTH ONCE A DAY. 2) HALOPERIDOL 5 MG---TAKE 1 TABLET BY MOUTH 3 TIMES A DAY (MORNING, AFTERNOON AND BEDTIME). 3) GABAPENTIN 300 MG---TAKE 1 TABLET BY MOUTH 3 TIMES A DAY (MORNING, AFTERNOON AND BEDTIME). 4) BENADRYL 25 MG---TAKE 1 TABLET BY MOUTH 3 TIMES A DAY (MORNING, AFTERNOON AND BEDTIME). -FOR FURTHER QUESTIONS OR CONCERNS, CONTACT DR. FAULKNER'S OFFICE. Referrals: Nicol English MD [Staff Provider] - Chely Faulkner MD [Staff Provider] -
== END 2018-01-14 22:40 | disposition home health service (06) | DRG 689 ==
LOC: C.ER 08:06 → C.9E 10:50 → C.5S 12:44 → C.3T 12-27 00:21
PROVIDERS: ADMIT Internal Medicine; ATTEND Internal Medicine
PROC: GZHZZZZ Group Psychotherapy (ICD-10-PCS; principal; 2017-12-29)
PROC: GZ56ZZZ Individual Psychotherapy, Supportive (ICD-10-PCS; 2017-12-29)
PROC: GZ3ZZZZ Medication Management (ICD-10-PCS; 2017-12-29)
DX: N39.0 Urinary tract infection, site not specified (principal); G93.41 Metabolic encephalopathy; N17.9 Acute kidney failure, unspecified; E86.0 Dehydration; F25.0 Schizoaffective disorder, bipolar type; I10 Essential (primary) hypertension; B96.20 Unspecified Escherichia coli [E. coli] as the cause of diseases classified elsewhere; E78.00 Pure hypercholesterolemia, unspecified